=== PATIENT | female | born 1950 | race Caucasian/White ===

== ENCOUNTER 2023-08-14 09:33 | Outpatient (CLI) | payer MEDICARE ==
[2023-08-14 11:31] VITALS: BP 165/90; TEMP 97.9
[2023-08-14] MEDS ORDERED: FLU VACC QS2023(65UP)/MF59C/PF 60 MCG/0.5 ML SYRINGE IM ONE (11:45)
== END 2023-08-14 11:55 | disposition home or self-care (01) ==
LOC: CSHRAD 09:33
PROVIDERS: ATTEND Neurological Surgery
DX: M48.061 Spinal stenosis, lumbar region without neurogenic claudication (principal); M47.816 Spondylosis without myelopathy or radiculopathy, lumbar region
CPT/HCPCS: 62304; 72110; 72132